=== PATIENT | male | born 1965 | race Caucasian/White ===

== ENCOUNTER 2021-02-23 07:57 | Day surgery (SDC) | payer OTHER ==
[2021-02-23] MEDS ORDERED: ASPIRIN EC 325 MG TAB PO NR (08:45)
[2021-02-23] MEDS: SODIUM CHLORIDE 0.9% 500 ML 500 ML IV SCH ×2 (09:10→10:21)
[2021-02-23 09:21] LABS: Hemoglobin 14.2 gm/dl (11.8-15.2); Mean Corpuscular HGB Conc 36 % (32-34); Mean Corpuscular Volume 91 fl (84-94); Platelet Count 305 K/mm3 (140-440); Red Blood Count 4.38 M/mm3 (3.65-5.03); Red Cell Distribution Width 13.7 % (13.2-15.2)
[2021-02-23 09:31] LABS: INR 0.94 (0.87-1.13)
[2021-02-23 09:32] LABS: Partial Thromboplastin Time 32.9 Sec. (24.2-36.6)
[2021-02-23 09:41] LABS: BUN/Creatinine Ratio 17; Blood Urea Nitrogen 12 mg/dL (9-20); Calcium 9.2 mg/dL (8.4-10.2); Hemolysis Index 2
[2021-02-23] MEDS ORDERED: HEPARIN/NS 5000 UNIT/500ML 1,000 ML IR ONE (09:45)
[2021-02-23] MEDS ORDERED: NITROGLYCERIN SYRINGE 0 ML ONE (09:46)
[2021-02-23] MEDS ORDERED: VERAPAMIL 5 MG/2 ML INJ ONE (09:46)
[2021-02-23] MEDS ORDERED: HEPARIN 10,000 UNITS/10 ML VIAL ONE (09:46)
[2021-02-23 09:58] LABS: Total Cells Counted 100
[2021-02-23 09:59] LABS: Platelet Estimate Consistent w Auto; RBC Morphology Normal
[2021-02-23] MEDS: fentaNYL 100 MCG/2 ML INJ ONE ×3 (10:19→10:27)
[2021-02-23] MEDS: MIDAZOLAM 2 MG/2 ML INJ ONE ×3 (10:20→10:30)
[2021-02-23] MEDS: LIDOCAINE (2%) 20 MG/1 ML VIAL 20 ML MDV INFILTRATI ONE ×2 (10:20→10:25)
--- NOTE | 2021-02-23 11:22 | Discharge Summary ---
Short Stay Discharge Plan Activity: advance as tolerated Weight Bearing Status: Full Weight Bearing Diet: low fat, low cholesterol, low salt Wound: open to air, keep clean and dry Additional Instructions: I SAW THIS PT & AGREE WITH THE Dx & Tx PLAN. Follow up with: DENA LOYOLA MD [Primary Care Provider] - 7 Days [facility]
[2021-02-23] MEDS ORDERED: traMADol 50 MG TAB PO PRN (11:30)
--- NOTE | 2021-02-23 13:22 | Cardiac Catherization Report ---
DATE OF SERVICE: 02/23/2021 HISTORY: The patient is a 55-year-old male with a known cardiomyopathy, who continued to experience shortness of breath, fatigue, and chest discomfort, suggestive of possibility of underlying coronary artery disease. INDICATIONS FOR PROCEDURE: Dilated cardiomyopathy with symptoms consistent with angina. PROCEDURES: Left heart catheterization, ventriculography, and coronary angiography via the right femoral artery using 5-Yi Jesu catheters and a pigtail catheter. COMPLICATIONS: None. PREPROCEDURE DIAGNOSIS: Cardiomyopathy with angina. POSTPROCEDURE DIAGNOSIS: Cardiomyopathy with normal coronaries. ESTIMATED BLOOD LOSS: 10-20 mL. TISSUE SAMPLES: None. SEDATION: Intravenous Versed and fentanyl. PROCEDURE START TIME: 10:21 a.m. PROCEDURE END TIME: 10:40 a.m. SEDATION TIME: 19 minutes. PROCEDURE TIME: 19 minutes. HEMODYNAMICS: Central aortic pressure 86/50. Left ventricular pressure 86/8. ANGIOGRAPHIC RESULTS: 1. Left coronary artery; mild intimal irregularities. 2. Right coronary artery: This is a dominant vessel and there are mild intimal irregularities. 3. Left ventricle: The ventriculogram reveals mild to moderate left ventricular enlargement with global hypokinesia. Estimation of the ejection fraction is 25-30%. FINAL IMPRESSION: 1. Nonischemic dilated cardiomyopathy with continued symptoms on medical therapy. Note that the blood pressure has limited the ability to treat with the usual therapy for dilated cardiomyopathy. 2. Angina: No significant coronary lesions. PLAN: Aggressive medical therapy, CAD risk factor modification. Office followup within 1 week. TID: [id number] RECEIPT: [id number] LATONIA/KERON/AKIL
[2021-02-23 15:49] VITALS: BP 110/72
--- NOTE | 2021-02-24 10:12 | Electrocardiograph Report ---
[facility] Test Date: 2021-02-23 Test Time: 09:53:22 Pat Name: DIYA PENN Department: Room: Gender: M Investment Advisor: BROCK : 1965 Requested By: [employer] Order Number: [id number] Reading MD: Tyler Salter Measurements Intervals [place] Rate: 64 P: 65 WA: 132 QRS: 82 QRSD: 98 T: 53 QT: 459 QTc: 473 Interpretive Statements Sinus rhythm Consider left ventricular hypertrophy No previous ECG available for comparison Electronically Signed On 02-24-2021 10:12:08 EDT by Tyler Salter
== END 2021-02-23 15:30 | disposition home or self-care (01) ==
LOC: CATHLABREC 07:57
PROVIDERS: ATTEND Internal Medicine Cardiovascular Disease
DX: I42.0 Dilated cardiomyopathy (principal); E03.9 Hypothyroidism, unspecified; Z79.899 Other long term (current) drug therapy; Z79.82 Long term (current) use of aspirin; Z98.890 Other specified postprocedural states; Z82.49 Family history of ischemic heart disease and other diseases of the circulatory system
CPT/HCPCS: 36415; 80048; 85007; 85025; 85610; 85730; 93005; 93458; 99156; J1644; J2250; J3010; J7040; Q9967